=== PATIENT | female | born 1990 | race African-American/Black ===

== ENCOUNTER 2020-09-10 13:03 | Observation (INO) | payer OTHER, SELFPAY ==
[2020-09-10 13:42] LABS: Absolute Lymphocytes (CBC) 1.6 K/uL (0.7-4.9); Basophils % 0.5 % (0-1.3); Lymphocytes % 15.3 % (15.3-44.8); MPV 8.6 fL (7.6-11.3); RBC Red Blood Cell Count 4.96 M/uL (3.86-4.86)
[2020-09-10 13:46] LABS: Protime INR 1.25
[2020-09-10] MEDS ORDERED: NA CHLORIDE 0.9% 1,000 ML ONE (13:52)
--- NOTE | 2020-09-10 13:56 | RAD REPORT ---
EXAM DESCRIPTION: CT - Head Brain Wo Cont - 09/10/2020 1:44 pm CLINICAL HISTORY: SEIZURE COMPARISON: No comparisons TECHNIQUE: Axial 5 mm thick images of the head were obtained without IV contrast. All CT scans are performed using dose optimization technique as appropriate and may include automated exposure control or mA/KV adjustment according to patient size. FINDINGS: No intracranial hemorrhage, mass, edema or shift of mid-line structures. No acute infarcti on changes seen. No abnormal extra-axial fluid collections. Ventricles are normal. Mastoid air cells and visualized portions of the paranasal sinuses are clear. No acute bony findings. IMPRESSION: Negative non-contrast CT head examination.
[2020-09-10] MEDS ORDERED: levETIRAcetam 1,000 MG in NA CHLORIDE 0.9% 100 ML IV ONE (14:00)
[2020-09-10 14:03] LABS: ALT/SGPT 22 U/L (12-78); AST/SGOT 14 U/L (15-37); Albumin 4.5 g/dL (3.4-5.0); Alkaline Phosphatase 52 U/L (45-117); BUN Blood Urea Nitrogen 7 mg/dL (7-18); Bicarbonate 26 mmol/L (21-32); Bilirubin Direct 0.3 mg/dL (0-0.2); Bilirubin Total 1.3 mg/dL (0.2-1.0); Creatine Phosphokinase 91 U/L (26-192); Glucose Level 73 mg/dL (74-106); Lipase 31 U/L (73-393); Potassium 3.3 mmol/L (3.5-5.1); Protein, Total 7.6 g/dL (6.4-8.2); Sodium Level 139 mmol/L (136-145); Troponin (Emerg Dept Use Only) < 0.02 ng/mL (0.0-0.045)
--- NOTE | 2020-09-10 14:19 | ER ---
Nurse's Notes [facility] Name: Kenny Torres Age: 29 yrs Sex: Female : 1990 Arrival Date: 09/10/2020 Time: 13:05 Bed 17 Private MD: Diagnosis: Epilepsy, unspecified, not intractable, with status epilepticus Presentation: 09/10 13:05 Chief complaint: EMS states: Witnessed seizure x 3 with EMS. Family reports seizure for ca1 the last couple days. No HX of seizures. 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 IV 20G LAC started, Lorazepam 4mg IV given. Coronavirus screen: Client denies travel out of the [place] in the last 14 days. At this time, the client does not indicate any symptoms associated with coronavirus-19. Ebola Screen: Patient negative for fever greater than or equal to 101.5 degrees Fahrenheit, and additional compatible Ebola Virus Disease symptoms Patient denies exposure to infectious person. Patient denies travel to an Ebola-affected area in the 21 days before illness onset. No symptoms or risks identified at this time. Initial Sepsis Screen: Does the patient meet any 2 criteria? No. Patient's initial sepsis screen is negative. Does the patient have a suspected source of infection? No. Patient's initial sepsis screen is negative. Risk Assessment: Do you want to hurt yourself or someone else? Patient reports no desire to harm self or others. Onset of symptoms was September 10, 2020. 13:05 Method Of Arrival: EMS: [facility] ca1 13:05 Acuity: AGAPITO 2 ca1 TONGER: 14:14 [facility] 07/2020 ca1 Historical: - Allergies: 13:15 Latex, Natural Rubber; ca1 13:15 Compazine; ca1 13:15 Zofran; ca1 13:15 Reglan; ca1 - Home Meds: 18:49 Famotidine Oral [Active]; Promethazine Oral [Active]; ca1 - PMHx: 13:15 Hole in Heart; arrythmia; ca1 - Immunization history:: Client reports having NOT received the Covid vaccine. Flu vaccine is not up to date. - Social history:: Smoking status: unknown. - Family history:: not pertinent. - Hospitalizations: : No recent hospitalization is reported. Screenin:38 Abuse screen: Denies threats or abuse. Nutritional screening: Has had N/V for 3 or more kg days. Tuberculosis screening: No symptoms or risk factors identified. Fall Risk IV access (20 points). Gait- Impaired (20 pts.). Mental Status- Total Cochran Fall Scale indicates. Assessment: 13:33 General: Appears in no apparent distress. slender, malnourished, cachectic. Pain: kg Unable to use pain scale. FLACC scale score is 0 out of 10. Neuro: Seizure activity reported prior to arrival. Type of seizure: grand mal seizure. 13:35 Cardiovascular: No deficits noted. Respiratory: No deficits noted. Respiratory: Breath kg sounds are clear bilaterally. GI: No deficits noted. : No deficits noted. : No deficits noted. Parent/caregiver report the patient having Significant other reports, "She thinks she has a UTI and yeast infection. She's been complaining of burning and itching.". EENT: No deficits noted. Derm: No deficits noted. Musculoskeletal: No deficits noted. 14:20 Reassessment: Patient appears in no apparent distress at this time. No changes from ca1 previously documented assessment. 15:09 Reassessment: Patient appears in no apparent distress at this time. No changes from ca1 previously documented assessment. Dr. Ly at bedside, attempting to do US guided IV. 16:18 Reassessment: Markel, . ca1 16:19 Reassessment: Patient appears in no apparent distress at this time. Patient and/or kg family updated on plan of care and expected duration. Pain level reassessed. Patient is alert, oriented x 3, equal unlabored respirations, skin warm/dry/pink. Neuro: Level of Consciousness is awake, obeys commands, confused. 20:47 Reassessment: Report given to Naina CAMP ea Vital Signs: 13:05 BP 128 / 91; Pulse 95; Resp 17 S; Temp 98.5(TE); Pulse Ox 98% on R/A; ca1 14:20 BP 126 / 92; Pulse 85; Resp 17; Pulse Ox 99% on R/A; ca1 15:13 BP 140 / 102; Pulse 86; Resp 18 S; Pulse Ox 100% on R/A; ca1 17:30 BP 128 / 96; Pulse 79; Resp 16; Pulse Ox 100% on R/A; kg Ines Coma Score: 13:05 Eye Response: to pain(2). Verbal Response: inappropriate words(3). Motor Response: ca1 withdraws from pain(4). Total: 9. 16:22 Eye Response: spontaneous(4). Verbal Response: confused(4). Motor Response: obeys kg commands(6). Total: 14. ED Course: 13:05 Patient arrived in ED. ca1 13:07 Kal Ly MD is Attending Physician. rn 13:10 Triage completed. ca1 13:15 Arm band placed on right wrist. ca1 13:15 Patient has correct armband on for positive identification. Bed in low position. Call ca1 light in reach. Side rails up X2. Seizure precautions initiated. front desk monitor on. Pulse ox on. NIBP on. 13:15 Door closed. Noise minimized. Lights dimmed. Warm blanket given. ca1 13:30 Sarah Gann is Primary Nurse. kg 13:30 CBC with Automated Diff Sent. kg 13:30 Creatine Phosphokinase Sent. kg 13:30 Basic Metabolic Panel Sent. kg 13:30 Salicylate Sent. kg 13:30 Acetaminophen Sent. kg 13:31 Basic Metabolic Panel Sent. kg 13:31 CBC with Diff Sent. kg 13:31 CPK Sent. kg 13:31 Hepatic Function Sent. kg 13:31 Lipase Sent. kg 13:32 Protime (+inr) Sent. kg 13:32 Ptt, Activated Sent. kg 13:33 Inserted saline lock: 20 gauge in left antecubital area, using aseptic technique. kg 13:44 CT Head Brain wo Cont In Process Unspecified. EDMS 14:00 Maintain EMS IV. infiltrated. IV discontinued. Bleeding controlled. Band aid applied. ca1 Catheter tip intact. 14:10 Missed attempt(s): 22 gauge in right antecubital area. Bleeding controlled, band aid ca1 applied, catheter tip intact. 14:14 Missed attempt(s): 20 gauge in left antecubital area. mt 14:18 Ulysses Bonilla is Hospitalizing Provider. rn 14:18 Missed attempt(s): 24 gauge in left hand. Bleeding controlled, band aid applied, ca1 catheter tip intact. 14:33 Consuelo Lemus MD is Hospitalizing Provider. rn 14:40 Missed attempt(s): 20 gauge in left antecubital area. Bleeding controlled, band aid ca1 applied, catheter tip intact. 14:49 Missed attempt(s): 22 gauge in left antecubital area. by Dr. Ly . Bleeding ca1 controlled, band aid applied, catheter tip intact. 15:39 Lab(s) recollected, by ED staff, sent to lab. Inserted saline lock: 18 gauge in right ca1 EJ, using aseptic technique. ,using aseptic technique. by JONA Costello Blood collected. 18:27 COVID-19 : Document "Date of Symptom Onset" if Symptomatic. Sent. kg 19:38 Report given to Almas REN. kg 20:11 No provider procedures requiring assistance completed. ea Administered Medications: 15:42 Drug: NS 0.9% 1000 ml Route: IV; Rate: 1000 ml; Site: right jugular; ca1 16:13 Follow up: Response: No adverse reaction; IV Status: Completed infusion; IV Intake: kg 1000ml 15:45 Drug: Keppra (levETIRAcetam) 1000 mg Route: IV; Rate: calculated rate; Site: right ca1 jugular; 16:12 Follow up: Urine output 6 ml; Response: No adverse reaction; IV Status: Completed kg infusion; IV Intake: 100ml Intake: 16:12 IV: 100ml; Total: 100ml. kg 16:13 IV: 1000ml; Total: 1100ml. kg Output: 16:12 Urine: 6ml; Total: 6ml. kg Outcome: 14:18 Decision to Hospitalize by Provider. rn 20:48 Instructed on the need for admit, Demonstrated understanding of instructions. ea 21:23 Patient left the ED. ea Signatures: Dispatcher [employer] EDMS Kal Ly MD MD rn [facility] Lisa Hodges RN RN ea Davies, Jonathon, RN RN jd3 Acob, Cheryl, RN RN ca1 Graham, Kristen kg Corrections: (The following items were deleted from the chart) 15:11 13:05 Patient has correct armband on for positive identification. Bed in low position. ca1 Call light in reach. Side rails up X2. Seizure precautions initiated. ca1 15:11 13:05 front desk monitor on. Pulse ox on. NIBP on. ca1 ca1 15:12 14:49 Missed attempt(s): 20 gauge in left antecubital area. Bleeding controlled, band ca1 aid applied, catheter tip intact. jd3 15:12 13:15 Missed attempt(s): 22 gauge in left antecubital area. by Dr. Ly . Bleeding ca1 controlled, band aid applied, catheter tip intact. ca1 15:13 15:09 Reassessment: Patient appears in no apparent distress at this time. No changes ca1 from previously documented assessment. Dr. Ly at bedside, attempt to do US guided IV ca1
--- NOTE | 2020-09-10 14:19 | EDPHYS ---
Physician Documentation [facility] Name: Kenny Torres Age: 29 yrs Sex: Female : 1990 Arrival Date: 09/10/2020 Time: 13:05 Bed 17 Private MD: ED Physician Kal Ly HPI: 09/10 13:23 This 29 yrs old Female presents to ER via EMS with complaints of Seizure. rn 13:23 The patient presents with a history of multiple seizures, a total of 4. Seizure onset: rn just prior to arrival. Associated injury: Head/face:. Current symptoms: confusion, decreased level of consciousness. The patient has experienced similar episodes in the past. The patient has been recently seen by a physician:. 13:49 Significant other reports 1-2 [place] with [place] beach, has had seizures rn before, started maybe in May, thought to be related to her chronic emesis, not on meds. Hit head while seizing on car. Had atleast 2 more seizures with EMS, given 4mg ativan, glucose normal. He also states stopped smoking marijuana 1 week ago because told might be causing her emesis. . 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 Flu vaccine is not up to date. - Social history:: Smoking status: unknown. - Family history:: not pertinent. - Hospitalizations: : No recent hospitalization is reported. ROS: 13:49 Constitutional: Negative for fever, chills, and weight loss, Eyes: Negative for injury, rn pain, redness, and discharge, Neck: Negative for injury, pain, and swelling, Cardiovascular: Negative for chest pain, palpitations, and edema, Respiratory: Negative for shortness of breath, cough, wheezing, and pleuritic chest pain, Abdomen/GI: Negative for abdominal pain, diarrhea, and constipation, Back: Negative for injury and pain, MS/Extremity: Negative for injury and deformity, Skin: Negative for injury, rash, and discoloration, Neuro: Negative for headache, weakness, numbness, tingling Exam: 13:49 Constitutional: Very thin woman, sleeping, awakens to tactile stimulation Head/Face: rn Normocephalic, atraumatic. Eyes: Pupils equal round and reactive to light, extra-ocular motions intact. Lids and lashes normal. Conjunctiva and sclera are non-icteric and not injected. Cornea within normal limits. Periorbital areas with no swelling, redness, or edema. Cardiovascular: Regular rate and rhythm. No pulse deficits. Respiratory: No increased work of breathing, no retractions or nasal flaring. Abdomen/GI: soft, non-tender, + midline vertical healed scar on abdomen Skin: Warm, dry, no rash or cyanosis MS/ Extremity: Pulses equal, no cyanosis. Neuro: Sleeping, awakens, seems confused/post-ictal, able to be comforted by significant other and falls back asleep, sits up on her own power, moves all 4 ext. Vital Signs: 13:05 BP 128 / 91; Pulse 95; Resp 17 S; Temp 98.5(TE); Pulse Ox 98% on R/A; ca1 14:20 BP 126 / 92; Pulse 85; Resp 17; Pulse Ox 99% on R/A; ca1 15:13 BP 140 / 102; Pulse 86; Resp 18 S; Pulse Ox 100% on R/A; ca1 17:30 BP 128 / 96; Pulse 79; Resp 16; Pulse Ox 100% on R/A; kg [place] Coma Score: 13:05 Eye Response: to pain(2). Verbal Response: inappropriate words(3). Motor Response: ca1 withdraws from pain(4). Total: 9. 16:22 Eye Response: spontaneous(4). Verbal Response: confused(4). Motor Response: obeys kg commands(6). Total: 14. Procedures: 15:29 Peripheral line:. rn MDM: 13:07 Patient medically screened. rn 14:17 Differential diagnosis: cardiac arrhythmia, seizure. Data reviewed: vital signs, nurses rn notes, radiologic studies, and as a result, I will admit patient. Counseling: I had a detailed discussion with the patient and/or guardian regarding: the historical points, exam findings, and any diagnostic results supporting the discharge/admit diagnosis, radiology results, the need for further work-up and treatment in the hospital. Response to treatment: the patient's symptoms have mildly improved after treatment, and as a result, I will admit patient. Admission orders: after a detailed discussion of the patient's condition and case, the admit orders are written by me. ED course: Pt with multiple seizures today and increasing over last few months, ct head neg, will admit for hospitalist eval and neuro consultation. . 09/10 13:21 Order name: UDS rn 09/10 13:21 Order name: Basic Metabolic Panel rn 09/10 13:21 Order name: CBC with Diff rn 09/10 13:21 Order name: CPK rn 09/10 13:21 Order name: Hepatic Function; Complete Time: 14:09 rn 09/10 13:21 Order name: Lipase; Complete Time: 14:09 rn 09/10 13:21 Order name: Protime (+inr); Complete Time: 14:09 rn 09/10 13:21 Order name: Ptt, Activated; Complete Time: 14:09 rn 09/10 13:21 Order name: Troponin (emerg Dept Use Only); Complete Time: 14:09 rn 09/10 13:21 Order name: Urine Microscopic Only rn 09/10 13:21 Order name: Acetaminophen; Complete Time: 14:09 rn 09/10 13:21 Order name: Salicylate rn 09/10 13:21 Order name: Urine Drug Screen EDW[facility] 09/10 13:21 Order name: Basic Metabolic Panel; Complete Time: 14:09 EDMS 09/10 13:21 Order name: CT Head Brain wo Cont; Complete Time: 14:09 rn 09/10 13:21 Order name: CBC with Automated Diff; Complete Time: 14:09 EDMS 09/10 13:21 Order name: Creatine Phosphokinase; Complete Time: 14:09 EDMS 09/10 14:40 Order name: CBC with Automated Diff EDMS 09/10 14:40 Order name: CBC with Automated Diff EDMS 09/10 14:40 Order name: Comprehensive Metabolic Panel EDMS 09/10 14:40 Order name: Comprehensive Metabolic Panel EDMS 09/10 14:40 Order name: Brain Wo Cont EDMS 09/10 14:44 Order name: Folic Acid, (Folate) EDMS 09/10 14:44 Order name: Iron EDMS 09/10 14:44 Order name: Magnesium [facility] 09/10 14:44 Order name: Retic Count [facility] 09/10 14:44 Order name: Vitamin B12 Level [facility] 09/10 17:08 Order name: COVID-19 : Document "Date of Symptom Onset" if Symptomatic. ca1 09/10 18:58 Order name: CORONAVIRUS [facility] 09/10 19:48 Order name: SARS-COV-2 RT PCR [facility] 09/10 13:21 Order name: EKG; Complete Time: 13:22 rn 09/10 13:21 Order name: Cardiac monitoring; Complete Time: 13:31 rn 09/10 13:21 Order name: EKG - Nurse/Tech; Complete Time: 13: rn 09/10 13:21 Order name: IV Saline Lock; Complete Time: : rn 09/10 13:21 Order name: Labs collected and sent; Complete Time: 13: rn 09/10 13:21 Order name: NPO; Complete Time: 13: rn 09/10 13:21 Order name: O2 Per Protocol; Complete Time: 13: rn 09/10 13:21 Order name: O2 Sat Monitoring; Complete Time: 13: rn 09/10 13:21 Order name: Urine Dipstick-Ancillary (obtain specimen); Complete Time: 20:22 rn 09/10 14:19 Order name: Labs - recollect needed: recollect FAL; Complete Time: 15:55 bd 09/10 14:39 Order name: CONS Physician Consult [facility] 09/10 14:40 Order name: Regular [facility] 09/10 14:41 Order name: EEG Request [facility] Administered Medications: 15:42 Drug: NS 0.9% 1000 ml Route: IV; Rate: 1000 ml; Site: right jugular; ca1 16:13 Follow up: Response: No adverse reaction; IV Status: Completed infusion; IV Intake: kg 1000ml 15:45 Drug: Keppra (levETIRAcetam) 1000 mg Route: IV; Rate: calculated rate; Site: right ca1 jugular; 16:12 Follow up: Urine output 6 ml; Response: No adverse reaction; IV Status: Completed kg infusion; IV Intake: 100ml Disposition: 09/10/20 14:18 Hospitalization ordered by Consuelo Lemus for Inpatient Admission. Preliminary diagnosis is Epilepsy, unspecified, not intractable, with status epilepticus. - Bed requested for Telemetry/MedSurg (Inpatient). - Status is Inpatient Admission. ea - Condition is Stable. - Problem is an ongoing problem. - Symptoms have improved. Signatures: Dispatcher [employer] EDMS Anabella Bruno Roman, MD MD rn Lasagna, Tonya RN RN tl1 Lisa Hodges RN RN ea Keila, Racheal, RN GELA [facility] Sarah Gann kg Corrections: (The following items were deleted from the chart) 14:33 14:18 Hospitalization Ordered by Ulysses Bonilla for Inpatient Admission. Preliminary rn diagnosis is Epilepsy, unspecified, not intractable, with status epilepticus. Bed requested for Telemetry/MedSurg (Inpatient). Status is Inpatient Admission. Condition is Stable. Problem is an ongoing problem. Symptoms have improved. rn 19:57 14:33 09/10/2020 14:18 Hospitalization Ordered by Consuelo Lemus MD for Inpatient tl1 Admission. Preliminary diagnosis is Epilepsy, unspecified, not intractable, with status epilepticus. Bed requested for Telemetry/MedSurg (Inpatient). Status is Inpatient Admission. Condition is Stable. Problem is an ongoing problem. Symptoms have improved. rn 21:23 19:57 09/10/2020 14:18 Hospitalization Ordered by Consuelo Lemus MD for Inpatient ea Admission. Preliminary diagnosis is Epilepsy, unspecified, not intractable, with status epilepticus. Bed requested for Telemetry/MedSurg (Inpatient). Status is Inpatient Admission. Condition is Stable. Problem is an ongoing problem. Symptoms have improved. tl1
[2020-09-10] MEDS ORDERED: ACETAMINOPHEN 500 MG TAB PO PRN (14:36)
[2020-09-10] MEDS ORDERED: MORPHINE 2 MG/ML SYR IV PRN (14:36)
[2020-09-10] MEDS ORDERED: ONDANSETRON 4 MG/2 ML VIAL IV PRN (14:36)
--- NOTE | 2020-09-10 14:46 | P.HP ---
Certification for Inpatient Patient admitted to: Inpatient With expected LOS: >2 Midnights Patient will require the following post-hospital care: None Practitioner: I am a practitioner with admitting privileges, knowledge of patient current condition, hospital course, and medical plan of care. Services: Services provided to patient in accordance with Admission requirements found in Title 42 Section 412.3 of the Code of Federal Regulations Patient History Date of Service: 09/10/20 Reason for admission: New onset seizures History of Present Illness: Patient is a 29-year-old female came to the hospital with what appeared to be seizures. She has been having multiple seizures. She is from [place] and 1 to the [facility]. While she was there, she apparently had some epileptiform activity and fell against her car. The was concern she may have had hit her head. She was brought into the emergency room were she continued to have what appeared to be tonic clonic seizures. She was given anti epileptics. She was given benzodiazepines. Whenever she wakes up, she continues to have seizures. She was given IV Ativan and IV Keppra. She will be admitted to the hospital for further evaluation. Concern for status epilepticus. Allergies Latex, Natural Rubber Adverse Reaction (Verified 09/10/20 18:40) Hives/Rash metoclopramide [From Reglan] Adverse Reaction (Verified 09/10/20 18:40) Hives/Rash ondansetron [From Zofran] Adverse Reaction (Verified 09/10/20 18:40) Hives/Rash prochlorperazine [From Compazine] Adverse Reaction (Verified 09/10/20 18:40) Hives/Rash Home Medications: Famotidine [Pepcid] 20 mg PO BID 09/11/20 Promethazine Suppos [Phenergan] 25 mg RC DAILY 09/11/20 Escitalopram Oxalate [Lexapro] 10 mg PO DAILY #30 tablet 09/12/20 clonazePAM [Klonopin] 0.5 mg PO TIDP PRN #60 tab 09/12/20 levETIRAcetam [Keppra*] 500 mg PO BID #60 tab 09/12/20 - Past Medical/Surgical History Past Medical History: Patient denies medical history -: Abdominal mass Past Surgical History: Patient denies surgical history - Family History Father Family History: Reviewed- Non-Contributory - Social History Smoking Status: Never smoker Alcohol use: No CD- Drugs: No Review of Systems is unable to be obtained Physical Examination - Vital Signs Temperature: 98 F Blood Pressure: 110/70 Pulse: 80 Respirations: 18 Pulse Ox (%): 94 - Physical Exam General: Unresponsive, Other (Lethargic) HEENT: Atraumatic, PERRLA, Mucous membr. moist/pink, EOMI, Sclerae nonicteric Neck: Supple, 2+ carotid pulse no bruit, No LAD, Without JVD or thyroid abnormality Respiratory: Clear to auscultation bilaterally, Normal air movement Cardiovascular: Regular rate/rhythm, Normal S1 S2, No murmurs Gastrointestinal: Normal bowel sounds, Soft and benign, Non-distended, No tenderness Musculoskeletal: No clubbing, No swelling, No tenderness Integumentary: No rashes Neurological: Normal speech, Normal tone, Sensation intact, Cranial nerves 3-12 intact Lymphatics: No axilla or inguinal lymphadenopathy - Studies Laboratory Data (last 24 hrs) 09/10/20 13:26: WBC 10.50, Hgb 12.5, Hct 39.0, Plt Count 310 09/10/20 13:26: Sodium 139, Potassium 3.3 L, BUN 7, Creatinine 0.78, Glucose 73 L, Total Bilirubin 1.3 H, AST 14 L, ALT 22, Alkaline Phosphatase 52, Lipase 31 L 09/10/20 03:21: PT 14.4 H, INR 1.25, APTT 26.9 Assessment & Plan - Problems (Diagnosis) (1) Seizure Status: Acute - Plan Plan: 1. Anti epileptic 2. Benzodiazepines as needed 3. EEG 4. MRI of the brain as patient with a questionable abdominal mass history 5. Neurology consultation 6. Neurochecks q.1 hr 7. GI and DVT prophylaxis Discharge Plan: Home Plan to discharge in: Greater than 2 days - Advance Directives Does patient have a Living Will: No Does patient have a Durable POA for Healthcare: No - Code Status/Comfort Care Code Status Assessed: Yes Code Status: Full Code Critical Care: No Time Spent Managing PTS Care (In Minutes): 45
--- NOTE | 2020-09-10 16:07 | EKG ---
Test Date: 2020-09-10 Test Time: 13:27:27 Malt Roaster: HAN MEASUREMENT RESULTS: Intervals: Rate: 95 SC: 150 QRSD: 80 QT: 366 QTc: 459 Foss: P: 84 SC: 150 QRS: 86 T: 77 INTERPRETIVE STATEMENTS: Normal sinus rhythm Normal ECG No previous ECG available for comparison Electronically Signed On 09-10-20 16:06:41 CDT by Daniel Mcwilliams
[2020-09-10 16:09] LABS: Urine Bacteria LOADED /HPF (<20); Urine RBC <5 /HPF (NONE SEEN)
[2020-09-10 16:37] LABS: Phencyclidine NEGATIVE (NEGATIVE)
[2020-09-10 16:38] LABS: Barbiturates NEGATIVE (NEGATIVE); Benzodiazepines NEGATIVE (NEGATIVE); Cocaine NEGATIVE (NEGATIVE); METHAMPHETAM NEGATIVE (NEGATIVE); Methadone NEGATIVE (NEGATIVE); Opiates NEGATIVE (NEGATIVE); THC Cannibis POSITIVE (NEGATIVE)
[2020-09-10 21:37] VITALS: BMI 19.7
[2020-09-10 21:45] VITALS: O2SAT 100
[2020-09-10] MEDS: NA CHLORIDE 0.9% 1,000 ML IV SCH (22:16)
[2020-09-10] MEDS: CEFTRIAXONE/SWI 1gm 1 GM/10 ML SYR IVP SCH (22:16)
[2020-09-10] MEDS: levETIRAcetam 500 MG in NA CHLORIDE 0.9% 100 ML IV SCH (22:17)
[2020-09-11] MEDS: NA CHLORIDE 0.9% 1,000 ML IV SCH ×4 (01:00→21:00)
[2020-09-11] MEDS ORDERED: LORazepam 2 MG/ML VIAL IV PRN ×2 (01:39→14:15)
[2020-09-11] MEDS: MELATONIN 5 MG TABLET PO PRN ×2 (02:09→23:20)
[2020-09-11] MEDS ORDERED: LEVETIRACETAM 500 MG/5 ML VIAL IV ONE (04:59)
[2020-09-11] MEDS: levETIRAcetam 500 MG in NA CHLORIDE 0.9% 100 ML IV SCH ×2 (06:00→17:38)
[2020-09-11] MEDS ORDERED: NA CHLORIDE 0.9% 100 ML ONE (06:15)
[2020-09-11 06:36] LABS: Absolute Lymphocytes (CBC) 2.4 K/uL (0.7-4.9); Basophils % 0.5 % (0-1.3); Hematocrit 31.3 % (36.0-45.0); Lymphocytes % 37.2 % (15.3-44.8); MPV 8.8 fL (7.6-11.3); RBC Red Blood Cell Count 4.01 M/uL (3.86-4.86)
[2020-09-11 06:49] LABS: RBC Red Blood Cell Count 4.02 M/uL (3.86-4.86)
[2020-09-11 07:03] LABS: ALT/SGPT 17 U/L (12-78); AST/SGOT 8 U/L (15-37); Albumin 3.4 g/dL (3.4-5.0); Alkaline Phosphatase 40 U/L (45-117); BUN Blood Urea Nitrogen 7 mg/dL (7-18); Bicarbonate 22 mmol/L (21-32); Bilirubin Total 1.2 mg/dL (0.2-1.0); Glucose Level 91 mg/dL (74-106); Potassium 3.4 mmol/L (3.5-5.1); Protein, Total 5.9 g/dL (6.4-8.2); Sodium Level 141 mmol/L (136-145)
[2020-09-11 07:04] LABS: Folic Acid, (Folate) 11.5 ng/mL (3.1-17.5)
[2020-09-11] MEDS ORDERED: FOSPHENYTOIN PE 1,000 MG in NA CHLORIDE 0.9% 100 ML IV ONE (09:12)
--- NOTE | 2020-09-11 09:54 | RAD REPORT ---
EXAM DESCRIPTION: MRI - Brain Wo Cont - 09/11/2020 9:43 am CLINICAL HISTORY: seizure COMPARISON: No comparisons TECHNIQUE: Sagittal T1-weighted images were obtained along with axial PD, heavily T2-weighted and T2 -FLAIR images. Axial DWI and ADC mapping sequences were also obtained along with coronal heavily T2-w eighted images. FINDINGS: No intracranial hemorrhage, mass or acute infarction. There is no edema or shift of midlin e structures. No extra-axial fluid collections. Robles-matter/white matter junction is preserved. Signa l voids are seen as a normal finding in the major intracranial vessels. No heterotopic robles matter or other developmental abnormality as a seizure focus. Ventricles are normal. No sella or supra sella a bnormality. Cerebellar tonsils extend 3 mm below the foramen magnum. Normal rounded contour of the in ferior margin. This is not clinically significant to the seizure history. No globe or orbital content abnormality. Mastoid air cells and paranasal sinuses are clear. IMPRESSION: Negative non-contrast MRI of the Brain for acute or significant finding.
[2020-09-11] MEDS: CEFTRIAXONE/SWI 1gm 1 GM/10 ML SYR IVP SCH ×2 (10:17→20:07)
[2020-09-11] MEDS ORDERED: clonazePAM 1 MG TAB PO ONE (15:00)
[2020-09-11] MEDS: clonazePAM 0.5 MG TAB PO SCH (20:07)
[2020-09-11] MEDS: levETIRAcetam 500 MG TAB PO SCH (20:07)
[2020-09-12] MEDS: levETIRAcetam 500 MG in NA CHLORIDE 0.9% 100 ML IV SCH (05:43)
[2020-09-12 06:50] LABS: Absolute Lymphocytes (CBC) 2.2 K/uL (0.7-4.9); Basophils % 0.5 % (0-1.3); Hematocrit 30.9 % (36.0-45.0); Lymphocytes % 36.5 % (15.3-44.8); MPV 8.7 fL (7.6-11.3); RBC Red Blood Cell Count 3.94 M/uL (3.86-4.86)
[2020-09-12] MEDS: NA CHLORIDE 0.9% 1,000 ML IV SCH (07:00)
[2020-09-12 07:03] LABS: ALT/SGPT 18 U/L (12-78); AST/SGOT 9 U/L (15-37); Albumin 3.2 g/dL (3.4-5.0); Alkaline Phosphatase 37 U/L (45-117); BUN Blood Urea Nitrogen 6 mg/dL (7-18); Bicarbonate 26 mmol/L (21-32); Bilirubin Total 0.6 mg/dL (0.2-1.0); Glucose Level 90 mg/dL (74-106); Magnesium 2.1 mg/dL (1.8-2.4); Phosphorus 3.7 mg/dL (2.5-4.9); Potassium 3.9 mmol/L (3.5-5.1); Protein, Total 5.6 g/dL (6.4-8.2); Sodium Level 143 mmol/L (136-145)
[2020-09-12] MEDS ORDERED: ESCITALOPRAM 20 MG TAB PO SCH (09:00)
--- NOTE | 2020-09-12 09:39 | EEG ---
CHART: [id number] TEST ID#: [id number] DATE OF STUDY: 09/11/2020 THE EEG WAS RECORDED PORTABLE IN THE PATIENT'S ROOM ON A 17 CHANNEL MACHINE. ELECTRODES WERE APPLIED IN THE USUAL MANNER USING THE INTERNATIONAL 10-20 SYSTEM. THE WAKING BACKGROUND RHYTHM IN THIS RECORD CONSISTS OF WELL DEVELOPED AND WELL ORGANIZED WAVES OF 10 HZ., MAXIMAL IN THE POSTERIOR HEAD REGIONS WHICH ATTENUATE NORMALLY WITH EYE OPENING. LOW-VOLTAGE 18-22 HZ ACTIVITY IS EXPRESSED IN THE FRONTAL REGIONS. THE PATIENT FRANKS A EPISODE "SEIZURE" LASTING 18 SECONDS. ONLY MOVEMENT AND MUSCLE ARTIFACT WAS NOTED ON EEG. THERE ARE NO FOCAL OR LATERALIZING FEATURES. NO EPILEPTIFORM ACTIVITY APPEARS. SLEEP DID NOT OCCUR. HYPERVENTILATION WAS NOT PERFORMED. PHOTIC STIMULATION PRODUCED GOOD DRIVING BILATERALLY. IMPRESSION: NORMAL EEG FOR THE AGE OF THE PATIENT IN [place]. ONE CLINIC EVENT DESCRIBED "SEIZURE" LASTING 18 SECONDS WAS NOTED. NO EPILEPTIFORM OR ABNORMAL EEG ACTIVITY OCCURRED DURING THE EPISODE. THEREFORE, THE EVENT WAS NON-EPILEPTIC, SUCH EVENTS DO NOT TYPICALLY RESPOND TO ANTI-EPILEPTIC MEDICATIONS.
[2020-09-12] MEDS: clonazePAM 0.5 MG TAB PO SCH (09:41)
[2020-09-12] MEDS: levETIRAcetam 500 MG TAB PO SCH (09:41)
[2020-09-12] MEDS: CEFTRIAXONE/SWI 1gm 1 GM/10 ML SYR IVP SCH (09:42)
[2020-09-12 17:09] VITALS: BP 110/70; TEMP 98
--- NOTE | 2020-09-12 17:20 | P.PN ---
Subjective Date of Service: 09/11/20 Awaiting EEG and MRI studies. Awaiting neurology consultation. Patient was evaluated by bedside and while she was having a seizure she did not really display a lot of tonic activity. She was still able to resist and I believe she may have been alert. It did appear she had a seizure while she was getting any EEG and there was no epileptiform activity that I noted. Awaiting official reading by Neurology. Review of Systems 10-point ROS is otherwise unremarkable Physical Examination - Vital Signs Temperature: 98 F Blood Pressure: 110/70 Pulse: 80 Respirations: 18 Pulse Ox (%): 94 - Physical Exam General: Alert, In no apparent distress, Oriented x3 Respiratory: Clear to auscultation bilaterally, Normal air movement Cardiovascular: Regular rate/rhythm, Normal S1 S2, No murmurs Gastrointestinal: Normal bowel sounds, Soft and benign, Non-distended, No tenderness Musculoskeletal: No clubbing, No swelling, No tenderness Neurological: Normal speech, Normal tone, Normal affect Lymphatics: No axilla or inguinal lymphadenopathy - Studies Medications List Reviewed: Yes Assessment & Plan - Problems (Diagnosis) (1) Seizure Status: Acute - Plan Plan: Continue with plan of care as mentioned below 1. Anti epileptic 2. Benzodiazepines as needed 3. EEG 4. MRI of the brain as patient with a questionable abdominal mass history 5. Neurology consultation 6. Neurochecks q.1 hr 7. GI and DVT prophylaxis - Advance Directives Does patient have a Living Will: No Does patient have a Durable POA for Healthcare: No - Code Status/Comfort Care Code Status: Full Code
--- NOTE | 2020-09-12 17:21 | P.DS ---
Discharge Date: 09/12/20 Disposition: ROUTINE DISCHARGE Discharge Condition: GOOD Reason for Admission: New onset seizures - Problems (1) Seizure Status: Acute Brief History of Present Illness: Patient is a 29-year-old female came to the hospital with what appeared to be seizures. She has been having multiple seizures. She is from [place] to the [place]. While she was there, she apparently had some epileptiform activity and fell against her car. The was concern she may have had hit her head. She was brought into the emergency room were she continued to have what appeared to be tonic clonic seizures. She was given anti epileptics. She was given benzodiazepines. Whenever she wakes up, she continues to have seizures. She was given IV Ativan and IV Keppra. She will be admitted to the hospital for further evaluation. Concern for status epilepticus. Hospital Course: Patient is improved. Continue with antidepressant and anxiolytics. Anticipate discharge home with outpatient follow-up in 1-2 weeks. EEG showed no epileptiform while patient was actively seizing. MRI of the brain was negative. Anticipate discharge home. Vital Signs/Physical Exam: Temp Pulse Resp BP Pulse Ox 98 F 80 18 110/70 94 09/12/20 17:20 09/12/20 17:20 09/12/20 17:20 09/12/20 17:20 09/12/20 17:20 General: Alert, In no apparent distress, Oriented x3 Laboratory Data at Discharge: WBC 6.00 K/uL (4.3-10.9) 09/12/20 06:35 Hgb 10.1 g/dL (12.0-15.0) L 09/12/20 06:35 Hct 30.9 % (36.0-45.0) L 09/12/20 06:35 Plt Count 206 K/uL (152-406) 09/12/20 06:35 PT 14.4 SECONDS (9.5-12.5) H 09/10/20 03:21 INR 1.25 09/10/20 03:21 APTT 26.9 SECONDS (24.3-36.9) 09/10/20 03:21 Sodium 143 mmol/L (136-145) 09/12/20 06:35 Potassium 3.9 mmol/L (3.5-5.1) 09/12/20 06:35 BUN 6 mg/dL (7-18) L 09/12/20 06:35 Creatinine 0.60 mg/dL (0.55-1.3) 09/12/20 06:35 Glucose 90 mg/dL (74-106) 09/12/20 06:35 Phosphorus 3.7 mg/dL (2.5-4.9) 09/12/20 06:35 Magnesium 2.1 mg/dL (1.8-2.4) 09/12/20 06:35 Total Bilirubin 0.6 mg/dL (0.2-1.0) 09/12/20 06:35 AST 9 U/L (15-37) L 09/12/20 06:35 ALT 18 U/L (12-78) 09/12/20 06:35 Alkaline Phosphatase 37 U/L (45-117) L 09/12/20 06:35 Lipase 31 U/L (73-393) L 09/10/20 13:26 Home Medications: Famotidine [Pepcid] 20 mg PO BID 09/11/20 Promethazine Suppos [Phenergan] 25 mg RC DAILY 09/11/20 Escitalopram Oxalate [Lexapro] 10 mg PO DAILY #30 tablet 09/12/20 clonazePAM [Klonopin] 0.5 mg PO TIDP PRN #60 tab 09/12/20 levETIRAcetam [Keppra*] 500 mg PO BID #60 tab 09/12/20 New Medications: levETIRAcetam [Keppra*] 500 mg PO BID #60 tab clonazePAM [Klonopin] 0.5 mg PO TIDP PRN #60 tab PRN Reason: Anxiety Escitalopram Oxalate [Lexapro] 10 mg PO DAILY #30 tablet Diet: Regular Activity: Fall precautions Followup: Kurt De Santiago MD [ASSOCIATE-ACTIVE - CAN ADMIT] - NONE,NONE [Primary Care Provider] - Time spent managing pt's care (in minutes): 35
--- NOTE | 2020-09-12 21:37 | CON ---
Reason For Consultation: Consultation called because of seizures. History Of Present Illness: Ms. Torres is a 29-year-old right-handed patient, who per her h usband and her mother, whom I spoke with while the patient was in the room, has had multiple seizure- like episodes of at least originally perhaps more than a year ago and more recently over the last 2 m onths. Her said the most recent event occurred while she was awake. She had a sudden arrest of activity. She extended her head, back, eyes rolled, she fell and shook for about 2 minutes. She bit her tongue, did not lose urine control. She remained confused for several minutes. Prior to th is episode, he said over the last around 2 months, which actually coincides with the loss of a child they had, she would have episodes of sudden stiffening and would be unresponsive and then that would last less than 30 seconds, and she would come back, but appeared confused and have no memory of the e vent. He said she had maybe about 20 of these since he was taking note. At [facility], she had MRI of the brain, which showed no acute ischemic or hemorrhagic change. The cerebellar tonsils extended 3 mm below the foramen magnum, but not to the extent of obstruction of any of the above CSF and not to a formation of the Chiari. Her electroencephalogram, which actually captured an 18 second event, described as a seizure was only remarkable for myogenic artifact and movement artifact. Ther e was no epileptiform activity recorded during that event. Her blood work was normal except for slig htly low hemoglobin and hematocrit. INR 1.25. Chemistries initially showed a low potassium of 3.3, corrected 3.9. Liver function studies show elevated total bilirubin, direct bilirubin, and low AST o f 14. B12 normal. Folate normal. Urinalysis showed loaded bacteria, 10 to 20 white blood cells, an d toxicology screen was positive for marijuana. The patient and her admit to daily marijuana use and she was actually using marijuana at the time of the event. They denied the marijuana being cut with any unusual compounds such as formaldehyde or anything abnormal. Past Medical History: Abdominal mass that is not further defined. Allergies: LATEX, METOCLOPRAMIDE, ONDANSETRON, AND COMPAZINE. Medications: At home, Pepcid 20 mg twice daily, Phenergan 25 mg daily as needed, Lexapro 10 mg daily , Klonopin 0.5 mg 2 times daily, and she is on Keppra 500 b.i.d. Family History: Denies a family history of seizures. Social History: Smokes marijuana daily. Denies alcohol use. Review of Systems: She denies any recent fevers, chills, nausea, vomiting, myalgias, arthralgias, headache, weight william e, rash, psychiatric complaints. No gastrointestinal or genitourinary issues. No other positives ot her than mentioned. Physical Examination: Vital Signs: Blood pressure 110/70, pulse 80, respiratory rate 16, temperature 98.2, oxygen saturati on 100% on room air. Weight 115 pounds. Height 5 feet 4 inches, BMI 19.7. General: Ms. Torres is resting in bed. She actually was on the phone with her mother and her is at bedside. HEENT: She is normocephalic, atraumatic. Sclerae anicteric. Oropharynx is pink and moist. Neck: Supple. Chest: Clear. Heart: Regular. Extremities: No edema, cyanosis, or clubbing. Neurological: She is alert and oriented to person, place, situation. Follows commands appropriately . She has no expressive or receptive aphasias. Cranial nerves intact 2 through 12. Motor examinati on, she has normal strength in the upper and lower extremities without focal weakness. Sensation int act in the upper and lower extremities. Reflexes symmetric 1 to 2+ bilaterally. Coordination intact in the upper and lower extremities. Gait, she has normal stance, stride, and right arm swing. Assessment: Ms. 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 Her brain MRI shows a 3 mm cereb ellar tonsillar projection below the foramen magnum, but however, is not a Chiari malformation. No o bstruction is seen of CSF. She had a slightly low potassium of 3.3. The patient was recently stress ed because of loss of a child and had been sleep deprived. Plan: 1.Continue with Keppra 500 mg twice daily. 2.She may be discharged home today. 3.She was told that she should not drive a car, operate heavy machinery for 3 months from the date o f the last seizure. 4.Told to get 8 hours restorative sleep at night. 5.She is told to stop smoking marijuana. 6.She was instructed on aggressively treating any infection with especially fever. 7.Follow up in Dr. De Santiago's clinic in 1 month. Call the office on Tuesday for an appointment. HOME Voice ID: [id number] Report ID: [id number]
== END 2020-09-12 13:10 | disposition home or self-care (01) ==
LOC: ER 13:03 → ERHOLD 14:36 → 2ND 20:50
PROVIDERS: ADMIT Hospitalist; ATTEND Hospitalist
DX: R56.9 Unspecified convulsions (principal); F12.90 Cannabis use, unspecified, uncomplicated; R19.00 Intra-abdominal and pelvic swelling, mass and lump, unspecified site; Z91.040 Latex allergy status; Z88.8 Allergy status to other drugs, medicaments and biological substances; Z20.822 Contact with and (suspected) exposure to COVID-19
CPT/HCPCS: 96365; 95816; 93005; 87088; 85025 ×3; 87086; 80048; 36415 ×2; 82140; 83735 ×2; 82550; 80329 ×2; 84100; 85610; 85044; 80076; 80307 ×8; 85730; 87077; 87186; 81015; 84484; 82746; 82607; 83690; 83540; 80053 ×2; 70450; 70551; 99284; U0003; J1953 ×4; J0696 ×4; J7030 ×3; G0378; Q2009